=== PATIENT | male | born 1980 | race African-American/Black ===

== ENCOUNTER 2016-08-31 17:14 | Emergency (ER) | payer OTHER ==
--- NOTE | 2016-08-31 18:15 | RAD ---
LEFT SHOULDER THREE VIEW 08/31/16 HISTORY: Dislocated left shoulder. COMPARISON: Left shoulder two view from April 2016. FINDINGS: Subcoracoid anterior dislocation left shoulder. Large Hill-Sachs deformity. IMPRESSION: Subcoracoid anterior dislocation left shoulder. POS: [facility]
[2016-08-31] MEDS ORDERED: Lorazepam 2 MG/ML VIAL ONE ×2 (18:26→19:07)
[2016-08-31] MEDS ORDERED: Fentanyl 100 MCG/2 ML VIAL ONE (19:25)
--- NOTE | 2016-08-31 19:27 | RAD ---
LEFT SHOULDER ONE VIEW 08/31/16 HISTORY: Post reduction. COMPARISON: Shoulder radiograph same day. FINDINGS: There is continued anterior dislocation, although slightly improved. IMPRESSION: Continued anterior dislocated left shoulder. POS: [facility]
== END 2016-08-31 21:23 | disposition short-term general hospital (02) ==
LOC: NAV ERS 17:14
DX: S43.315A Dislocation of left scapula, initial encounter (principal); F41.9 Anxiety disorder, unspecified; F31.9 Bipolar disorder, unspecified; F17.210 Nicotine dependence, cigarettes, uncomplicated; X58.XXXA Exposure to other specified factors, initial encounter
CPT/HCPCS: 23650; 94760; 96374; 96375; 96376; J2060; J3010

== ENCOUNTER 2016-11-03 19:46 | Emergency (ER) | payer OTHER ==
[2016-11-03] MEDS ORDERED: Fentanyl 100 MCG/2 ML VIAL ONE (20:17)
[2016-11-03] MEDS ORDERED: Bupivacaine 0.5% 10 ML VIAL ONE (20:17)
[2016-11-03] MEDS ORDERED: Midazolam HCl 5 mg/ml Vial ONE (20:46)
[2016-11-03] MEDS ORDERED: Sodium Chloride 0.9% 1,000 ML ONE (20:46)
--- NOTE | 2016-11-03 20:51 | RAD ---
THREE VIEWS LEFT SHOULDER 11/03/16 HISTORY: Trauma, pain. FINDINGS: There is an anterior subcoracoid dislocation of the left glenohumeral joint. No widening of the AC o r CC interspace. IMPRESSION: Dislocation of the left glenohumeral joint. POS: [facility]
--- NOTE | 2016-11-03 22:46 | RAD ---
TWO VIEWS OF THE LEFT SHOULDER 11/03/16 COMPARISON: Prior study on same day. HISTORY: Status post reduction. FINDINGS: There is no widening of the AC or CC interspace. The previously noted fracture has been reduced. There is calcification inferior to the left hemidiaphragm, incompletely assessed, which may signify pleural or splenic calcification, similar when compared to a chest x-ray performed 12/06/12. There is flattening of the superolateral humeral head consistent with a chronic Hill-Sachs deformity . IMPRESSION: Interval reduction of previously noted left glenohumeral joint dislocation. POS: [facility]
== END 2016-11-03 21:42 | disposition home or self-care (01) ==
LOC: NAV ERS 19:46
DX: S43.015A Anterior dislocation of left humerus, initial encounter (principal); F31.9 Bipolar disorder, unspecified; F41.9 Anxiety disorder, unspecified; F17.210 Nicotine dependence, cigarettes, uncomplicated; X50.0XXA Overexertion from strenuous movement or load, initial encounter
CPT/HCPCS: J2250; J3010; J3490; J7050

== ENCOUNTER 2017-11-09 16:48 | Emergency (ER) | payer OTHER ==
[2017-11-09] MEDS ORDERED: Sodium Chloride 0.9% 1,000 ML ONE (17:16)
[2017-11-09 17:28] LABS: #Basophils 0.1 thou/uL (0.0-0.2); #Eosinphils 0.2 thou/uL (0.0-0.7); #Lymphocytes 1.9 thou/uL (1.20-3.40); #Monocytes 0.4 thou/uL (0.11-0.59); #Neutrophils 3.6 thou/uL (1.40-6.50); %Basophils 1.6 % (0.0-1.0); %Eosinophils 3.2 % (0.0-10.0); %Lymphocytes 30.9 % (21.0-51.0); %Neutrophils 58.4 % (42.0-75.0); Hemoglobin 12.4 g/dL (14.0-18.0); Mean Corpuscular HGB CONC 31.9 g/dL (32.0-36.0); Mean Corpuscular Hemoglobin 30.4 pg (27.0-31.0); Mean Corpuscular Volume 95.3 fl (80.0-94.0); Mean Platelet Volume 7.9 fL (7.4-10.4); Platelet Count 209 thou/uL (130-400); RBC Distribution Width 11.8 % (11.5-14.5); Red Blood Cell (RBC) Count 4.09 mill/uL (4.70-6.10); White Blood Cell (WBC) Count 6.2 thou/uL (4.8-10.8)
[2017-11-09 17:45] LABS: ALT (SGPT) 14 U/L (8-55); AST (SGOT) 16 U/L (5-34); Acetaminophen Less than 6.0 mcg/mL (10.0-30.0); Albumin 3.7 g/dL (3.5-5.0); Alcohol 64 mg/dL (Less than 10); Alkaline Phosphatase 65 U/L (40-150); Anion Gap 14 mmol/L (10-20); BUN (Urea Nitrogen) 9 mg/dL (8.9-20.6); Bilirubin, Total 0.5 mg/dL (0.2-1.2); CK (CPK) 90 U/L (30-200); Calc. Creatinine Clearance 0 mL/min (70-130); Calcium 8.2 mg/dL (7.8-10.44); Carbon Dioxide 21 mmol/L (22-29); Chloride 109 mmol/L (98-107); Estimated GFR-MDRD Greater than 90; Globulin 2.8 g/dL (2.4-3.5); Glucose 82 mg/dL (70-105); Magnesium 1.9 mg/dL (1.6-2.6); Potassium 3.3 mmol/L (3.5-5.1); Protein, Total 6.5 g/dL (6.0-8.3); Sodium 141 mmol/L (136-145); Troponin I Less than 0.010 ng/mL (< 0.028)
[2017-11-09] MEDS ORDERED: Potassium Chloride 20 MEQ TAB ONE (19:05)
== END 2017-11-09 19:14 | disposition home or self-care (01) ==
LOC: NAV ERS 16:48
DX: F12.129 Cannabis abuse with intoxication, unspecified (principal); E87.6 Hypokalemia; F31.9 Bipolar disorder, unspecified; F17.210 Nicotine dependence, cigarettes, uncomplicated
CPT/HCPCS: 80053; 80307; 82550; 83735; 84484; 85025; 99284; J7050

== ENCOUNTER 2017-11-27 21:01 | Emergency (ER) | payer OTHER ==
[2017-11-27] MEDS ORDERED: Ketorolac Tromethamine 30 MG/ML VIAL ONE (21:24)
--- NOTE | 2017-11-27 21:30 | RAD ---
RIGHT FOOT THREE VIEWS: HISTORY: Injury to right foot. FINDINGS: There is a transverse, mildly displaced fracture involving the distal aspect of the proximal phalanx of the great toe. No other fracture identified. IMPRESSION: Fracture, proximal phalanx, great toe. POS: [facility]
== END 2017-11-27 21:54 | disposition home or self-care (01) ==
LOC: NAV ERS 21:01
DX: S92.411A Displaced fracture of proximal phalanx of right great toe, initial encounter for closed fracture (principal); G40.909 Epilepsy, unspecified, not intractable, without status epilepticus; F31.9 Bipolar disorder, unspecified; F41.9 Anxiety disorder, unspecified; F17.210 Nicotine dependence, cigarettes, uncomplicated; B20 Human immunodeficiency virus [HIV] disease; W01.0XXA Fall on same level from slipping, tripping and stumbling without subsequent striking against object, initial encounter
CPT/HCPCS: 96372; J1885

== ENCOUNTER 2024-01-27 07:42 | Emergency (ER) | payer OTHER ==
[2024-01-27 08:28] LABS: #Basophils 0.1 thou/uL (0.0-0.2); #Eosinphils 0.3 thou/uL (0.0-0.7); #Lymphocytes 2.6 thou/uL (1.20-3.40); #Monocytes 0.5 thou/uL (0.11-0.59); %Basophils 0.7 % (0.0-1.0); %Eosinophils 2.7 % (0.0-10.0); %Lymphocytes 22.5 % (21.0-51.0); %Monocytes 4.3 % (0.0-10.0); %Neutrophils 69.8 % (42.0-75.0); Hematocrit 42.4 % (42.0-52.0); Hemoglobin 14.2 g/dL (14.0-18.0); Mean Corpuscular HGB CONC 33.5 g/dL (32.0-36.0); Mean Corpuscular Hemoglobin 32.3 pg (27.0-31.0); Mean Corpuscular Volume 96.3 fl (78.0-98.0); Mean Platelet Volume 8.2 fL (7.4-10.4); Platelet Count 210 10x3/uL (130-400); RBC Distribution Width 12.6 % (11.5-14.5); Red Blood Cell (RBC) Count 4.41 mill/uL (4.70-6.10); White Blood Cell (WBC) Count 11.5 10x3/uL (4.8-10.8)
[2024-01-27 08:36] LABS: Amphetamine Not Detected (NotDetected); Barbiturates Screen Not Detected (NotDetected); Benzodiazepine Screen Not Detected (NotDetected); Cocaine Metabolite Screen Not Detected (NotDetected); Methadone Not Detected (NotDetected); Methamphetamine Not Detected (NotDetected); Opiate Screen Not Detected (NotDetected); Oxycodone Screen Not Detected (NotDetected); Phencyclidine (PCP) Not Detected (NotDetected); THC/Cannabinoid Screen Detected (NotDetected); Tricyclic Screen Not Detected (NotDetected)
[2024-01-27 08:45] LABS: ALT (SGPT) 17 U/L (8-55); AST (SGOT) 20 U/L (5-34); Albumin 4.1 g/dL (3.5-5.0); Alkaline Phosphatase 80 U/L (40-110); Anion Gap 16 mmol/L (10-20); BUN (Urea Nitrogen) 9 mg/dL (8.9-20.6); Bilirubin, Total 0.4 mg/dL (0.2-1.2); Calc. Creatinine Clearance 0 mL/min (70-130); Calcium 8.9 mg/dL (7.8-10.44); Carbon Dioxide 19 mmol/L (22-29); Chloride 103 mmol/L (98-107); Estimated GFR 106; Globulin 4.3 g/dL (2.4-3.5); Glucose 94 mg/dL (70-105); Potassium 3.7 mmol/L (3.5-5.1); Protein, Total 8.4 g/dL (6.0-8.3); Sodium 134 mmol/L (136-145)
[2024-01-27 08:46] LABS: Acetaminophen Less than 10 mcg/mL (10.0-30.0); Alcohol 207.2 mg/dL (Less than 10); Salicylate Less than 8.0 mg/dL (15.0-30.0)
== END 2024-01-27 09:45 | disposition home or self-care (01) ==
LOC: NAV ERS 07:42
DX: F10.129 Alcohol abuse with intoxication, unspecified (principal); S05.42XA Penetrating wound of orbit with or without foreign body, left eye, initial encounter; H61.23 Impacted cerumen, bilateral; F17.210 Nicotine dependence, cigarettes, uncomplicated; X58.XXXA Exposure to other specified factors, initial encounter; Y90.7 Blood alcohol level of 200-239 mg/100 ml
CPT/HCPCS: 70450; 70486; 72125; 80053; 80306; 80307; 85025; 93005

== ENCOUNTER 2024-08-30 12:15 | Emergency (ER) | payer OTHER ==
[2024-08-30 13:20] LABS: #Basophils 0.1 thou/uL (0.0-0.2); #Eosinophils 0.3 thou/uL (0.0-0.7); #Lymphocytes 2.3 thou/uL (1.20-3.40); #Monocytes 0.6 thou/uL (0.11-0.59); #Neutrophils 3.3 thou/uL (1.40-6.50); %Basophils 1.5 % (0.0-1.0); %Eosinophils 3.9 % (0.0-10.0); %Lymphocytes 35.2 % (21.0-51.0); %Neutrophils 50.4 % (42.0-75.0); Hematocrit 42.6 % (42.0-52.0); Hemoglobin 15.2 g/dL (14.0-18.0); Mean Corpuscular HGB CONC 35.6 g/dL (32.0-36.0); Mean Corpuscular Hemoglobin 32.8 pg (27.0-31.0); Mean Platelet Volume 8.6 fL (7.4-10.4); Platelet Count 235 10x3/uL (130-400); RBC Distribution Width 11.1 % (11.5-14.5); Red Blood Cell (RBC) Count 4.63 mill/uL (4.70-6.10); White Blood Cell (WBC) Count 6.6 10x3/uL (4.8-10.8)
[2024-08-30 13:31] LABS: ALT (SGPT) 16 U/L (Less than 45); AST (SGOT) 26 U/L (11-34); Albumin 4.2 g/dL (3.1-4.5); Alkaline Phosphatase 71 U/L (40-110); Anion Gap 13 mmol/L (10-20); BUN (Urea Nitrogen) 13 mg/dL (8.9-20.6); Bilirubin, Total 0.6 mg/dL (0.3-1.2); Calc. Creatinine Clearance 0 mL/min (70-130); Calcium 9.5 mg/dL (7.8-10.44); Carbon Dioxide 21 mmol/L (22-29); Chloride 103 mmol/L (98-107); Estimated GFR 98; Globulin 3.9 g/dL (2.4-3.5); Glucose 82 mg/dL (70-105); Protein, Total 8.1 g/dL (6.0-8.3); Sodium 133 mmol/L (136-145)
[2024-08-30 13:32] LABS: Acetaminophen Less than 10 mcg/mL (Less than 10); Alcohol Less than 10.0 mg/dL (Less than 10); Salicylate Less than 8.0 mg/dL (Less than 8.0)
[2024-08-30 13:33] LABS: Amphetamine Detected (NotDetected); Barbiturates Screen Not Detected (NotDetected); Benzodiazepine Screen Not Detected (NotDetected); Cocaine Metabolite Screen Not Detected (NotDetected); Methadone Not Detected (NotDetected); Methamphetamine Detected (NotDetected); Opiate Screen Not Detected (NotDetected); Oxycodone Screen Not Detected (NotDetected); Phencyclidine (PCP) Not Detected (NotDetected); THC/Cannabinoid Screen Detected (NotDetected); Tricyclic Screen Not Detected (NotDetected)
== END 2024-08-30 14:42 | disposition home or self-care (01) ==
LOC: NAV ERS 12:15
DX: G40.909 Epilepsy, unspecified, not intractable, without status epilepticus (principal); F17.210 Nicotine dependence, cigarettes, uncomplicated
CPT/HCPCS: 80053; 80177; 80306; 80307; 85025; 99284